=== PATIENT | male | born 1965 | race Caucasian/White ===

== ENCOUNTER 2019-04-28 09:23 | Outpatient (RCR) | payer BC, SELFPAY | END 2019-07-27 23:59 | disposition home or self-care (01) | LOC: ANHDMC 09:23 | PROVIDERS: PCP Family Medicine; Visit Provider Family Medicine | DX: E11.40 Type 2 diabetes mellitus with diabetic neuropathy, unspecified (principal); Z71.89 Other specified counseling | CPT/HCPCS: G0108 ==

== ENCOUNTER 2023-07-02 20:16 | Emergency (ER) | payer BC, SELFPAY ==
--- NOTE | ~2023-07-02 | CT_ITS ---
EXAMINATION: 1. CT facial & cervical spine wo DATE: 07/02/2023 21:01 INDICATION: Fall with head injury TECHNIQUE: 1. Computed tomography (CT) of the maxillofacial region and of the cervical spine were performed with out intravenous contrast. Sagittal and coronal reconstructions of both regions were obtained. Automat ed exposure control and iterative reconstruction technique were employed. The dose-length product was 521.87 mGy-cm. COMPARISON: None. FINDINGS: Maxillofacial CT: No maxillofacial fractures. Specifically the nasal bones, mandible, zygomatic arches and kaplan of the orbits and paranasal sinuses are all intact. Mucosal thickening in the bilateral maxillary sinuses. Orbits are normal. Dental Salma with periapical lucency at the left mandibular first molar. Atheroscl erotic calcific lesions at the bilateral carotid bulbs. Cervical spine CT: Alignment is normal. Vertebral body heights are normal. No acute fractures. Moderate disc height loss at C6-C7, C7-T1 and T1-T2 and mild disc height loss at C4-C5 and C5-C6. Posterior endplate osteophyt es contribute to mild central canal stenosis at C3-C4, C5-C6 and C6-C7. There is moderate bilateral m ultilevel cervical facet osteoarthritis and mild to moderate lower cervical predominant uncovertebral osteoarthritis. This contributes to bilateral multilevel mild to moderate neural foraminal stenosis most prominent on the right at C3-C4 and bilaterally at C6-C7. Visualized apices of the lungs are katey ar. IMPRESSION: 1. No maxillofacial fractures. 2. Moderate lower cervical predominant spondylosis. No acute osseous abnormality. Reviewed, dictated and finalized at location A. IMPRESSION: 1. No maxillofacial fractures. 2. Moderate lower cervical predominant spondylosis. No acute osseous abnormalit y.
--- NOTE | ~2023-07-02 | XR_ITS ---
EXAMINATION: XR chest 2V DATE: 07/02/2023 21:05 INDICATION: Syncope TECHNIQUE: frontal and lateral views of the chest were obtained. COMPARISON: None FINDINGS: The lungs are clear with no focal airspace opacities, pulmonary edema, pleural effusion or pneumothor ax. Heart size is normal. Mild thoracic spondylosis with mild anterior wedging of a few lower thoraci c vertebral bodies. IMPRESSION: 1. No acute cardiopulmonary disease. Reviewed, dictated and finalized at location A.
--- NOTE | ~2023-07-02 | CT_ITS ---
EXAMINATION: CT brain wo con DATE: 07/02/2023 21:01 INDICATION: Fall with head injury TECHNIQUE: Computed tomography (CT) of the head was performed without intravenous contrast. Sagittal and coronal reconstructions were performed. Automated exposure control and iterative reconstruction t echnique were employed. The dose-length product was 605.33 mGy-cm. COMPARISON: None FINDINGS: No fracture. No acute intracranial hemorrhage, acute infarction or abnormal extra axial fluid collect ion. Ventricles are normal and symmetric. No mass/mass effect. The orbits, paranasal sinuses and mas toid air cells are normal. IMPRESSION: 1. No fracture or acute intracranial process. Reviewed, dictated and finalized at location A.
--- NOTE | 2023-07-02 20:19 | ECG_ITS ---
Measurements Intervals [place] Rate: 72 P: 90 SD: 181 QRS: 40 QRSD: 93 T: 72 QT: 366 QTc: 401 Interpretive Statements SINUS RHYTHM WITHIN NORMAL LIMITS NO PREVIOUS ECG AVAILABLE FOR COMPARISON Electronically Signed On 07-03-2023 7:42:40 CDT by Rashad Marcos M.D.
[2023-07-02 20:28] VITALS: BP 159/79; PULSE 79; RESP 20; TEMP 36.4; O2SAT 99
[2023-07-02 20:29] LABS: Glucose Point of Care 116 mg/dl (65-105)
--- NOTE | 2023-07-02 20:41 | ED.SYNCOPE ---
HPI - Syncope General Chief Complaint: Syncope Stated Complaint: syncope, fall Time Seen by Provider: 07/02/23 20:41 Focused HPI: This is a 58 year old male that presents to the ER for a syncopal episode today. Reports he started to feel lightheaded. He thought maybe his blood sugar was low. He went to eat something and then lay down. He passed out. He hit his head. He has never passed out before. Reports he also was having some right leg pain yesterday and has started to develop a rash in the lower leg. Denies fevers, chest pain, shortness of breath or palpitations. GENERAL: Well-appearing, well-nourished, and in no acute distress. HEAD: Normocephalic. Lip laceration present. Abrasion over the nose CHEST: Clear to auscultation. ?No respiratory distress. HEART: Regular rate and rhythm.? NEURO: ?Alert and oriented x3. SKIN: Redness to the right lower leg Patient screened in triage and initial orders placed.? ?Additional care and disposition to be based upon?diagnostic testing and treatment. Related Data Allergies Allergy/AdvReac Type Severity Reaction Status Date / Time No Known Allergies Allergy Mild Verified 07/02/23 20:32 Review of Systems Review of Systems: CONSTITUTIONAL: Denies fever EYES: Denies visual changes CARDIOVASCULAR: Denies chest pain, palpitations, or edema. RESPIRATORY: Denies dyspnea. GASTROINTESTINAL: Denies vomiting SKIN: Reports rash MUSCULOSKELETAL: Reports myalgia. NEUROLOGIC: Denies numbness, or weakness. All systems reviewed & are unremarkable except as noted in HPI and below PMFSH Past Medical History Medical History (Updated 07/03/23 @ 00:02 by Vivi Butler PA-C) Benign essential HTN Low back strain Mixed anxiety depressive disorder Mixed hyperlipidemia Morbid obesity due to excess calories Neuropathy Type 2 diabetes mellitus with diabetic neuropathy, unspecified 2018 fbs 252 Surgical History Surgical History Hx of appendectomy (~1978) Family History Family History Father Diabetes mellitus Mother Family history of [place]'s chorea Social History Social History (Updated 06/16/23 @ 13:06 by Silvia J. Kupinski, MA) Smoking packs per day: 0 Smoking cigarettes per day: 0.0 Smoking status: Never smoker Smokeless tobacco user: chewing tobacco Alcohol intake: current Drinks per week: 5 Substance use: current Substance use type: marijuana Last use: couple days ago Do You Feel Safe in your Home?: Yes Lack of Transportation: No Lack of Food: Never True Current Housing: I Have Housing Concerned About Future Housing: No Difficulty Paying Gas/Electric Bills: No Difficulty Paying for Meds: No Currently Unemployed: No Education: Bachelor's Degree Difficulty w/ Childcare or Family Care: No Living arrangements: with family Exam Narrative: GENERAL: Well-appearing, well-nourished, and in no acute distress. HEAD: Normocephalic. Laceration to the lower lip. Abrasion over the nasal bridge EYES: PERRLA and EOMI. ENT: Nares clear, no rhinorrhea or epistaxis. Mucous membranes moist. Oropharynx without tonsillar hypertrophy exudate or other lesions. Bilateral TMs pearly anand non-bulging NECK: Supple. No adenopathy or masses. CHEST: Clear to auscultation. No respiratory distress. No wheezes rales or rhonchi HEART: Regular rate and rhythm. No murmur heard. Normal peripheral pulses. EXTREMITIES: Normal range of motion. No edema or obvious deformity. Patchy redness to the right lower extremity SKIN: Warm, dry, no rash. NEURO: No focal deficits. Alert and oriented x3. CN II-XII grossly intact PSYCH: Normal mood and affect Course Course Emergency Course: Patient and family updated on workup and recommendation for admission fur further observation and evaluation. He declines to be admitted at this time Vital Signs Vital
[2023-07-02 20:52] LABS: Basophils Percent Auto 0.4 % (0.2-1.2); Eosinophils Absolute Auto 0.1 K/mm3 (0-0.3); Eosinophils Percent Auto 0.7 % (0-4.4); Hematocrit 42.3 % (42.0-52.0); Hemoglobin 13.2 g/dL (14.0-18.0); Immature Granulocyte Absolute 0.08 K/mm3 (0.00-0.031); Immature Granulocyte Percent A 0.8 % (0-0.5); Lymphocytes Absolute Auto 2.08 K/mm3 (0.9-3.2); Lymphocytes Percent Auto 20.5 % (18.3-44.2); Mean Corpuscular HGB Conc 31.2 g/dl (32-36); Mean Corpuscular Volume 99.3 fl (80-100); Mean Platelet Volume 10.3 fl (7.4-10.4); Monocytes Absolute Auto 1.1 K/mm3 (0.1-0.6); Monocytes Percent Auto 10.5 % (2.6-8.5); Neutrophils Absolute Auto 6.8 K/mm3 (1.3-6.7); Neutrophils Percent Auto 67.1 % (45.5-73.1); Platelet Count Result 211 k/mm3 (150-375); Red Blood Count 4.26 M/mm3 (4.6-6.20); White Blood Count 10.1 K/mm3 (4.5-10.0)
[2023-07-02 21:16] LABS: Troponin I < 0.012 ng/mL (0.000-0.034)
[2023-07-02 21:35] LABS: Erythrocyte Sedimentation Rate 22 mm/hr (0-20)
[2023-07-02] MEDS: SODIUM CHLORIDE 0.9% IV 1,000 ML 999 ML IV CONT (21:42)
[2023-07-02] MEDS: LIDOCAINE HCL 1% LOCAL INJ 10 ML VIAL INFILTRATE (22:02)
[2023-07-02 22:11] VITALS: BP 134/87; PULSE 82
[2023-07-02 22:12] VITALS: BP 147/87; PULSE 76
[2023-07-02 22:13] VITALS: BP 127/87; PULSE 93
[2023-07-02 22:18] LABS: Alanine Aminotransferase 23 U/L (6-50); Albumin Level 4.5 g/dL (3.5-5.1); Alkaline Phosphatase 52 U/L (38-126); Anion Gap 9 mmol/L (4-12); Aspartate Amino Transferase 27 U/L (17-59); Bilirubin,Total 0.6 mg/dL (0.2-1.3); Blood Urea Nitrogen 22 mg/dL (9-20); CRP 16.8 mg/dL (<1.0); Calcium 9.7 mg/dL (8.4-10.2); Carbon Dioxide 25 mmol/L (22-30); Chloride 98 mmol/L (98-107); Estimated CRCL calculation 104 ml/min; Estimated Glomerular Filt Rate > 60; Glucose 151 mg/dL (65-110); Potassium 3.3 mmol/L (3.4-5.0); Sodium 132 mmol/L (137-145)
[2023-07-02 22:33] LABS: Magnesium 2.1 mg/dL (1.6-2.3)
[2023-07-02] MEDS: POTASSIUM CHLORIDE 20 MEQ ER TABLET 40 MEQ PO (22:37)
[2023-07-02] MEDS: ACETAMINOPHEN 500 MG TABLET 1000 MG PO (22:50)
[2023-07-03 00:22] VITALS: PULSE 68; RESP 18; O2SAT 98
== END 2023-07-03 00:23 | disposition home or self-care (01) ==
PROVIDERS: Emergency Provider Physician Assistant; PCP Family Medicine
DX: R55 Syncope and collapse (principal); S01.511A Laceration without foreign body of lip, initial encounter; L03.115 Cellulitis of right lower limb; E87.6 Hypokalemia; D64.9 Anemia, unspecified; I10 Essential (primary) hypertension; E11.40 Type 2 diabetes mellitus with diabetic neuropathy, unspecified; E78.2 Mixed hyperlipidemia; E66.01 Morbid (severe) obesity due to excess calories; Z68.30 Body mass index [BMI] 30.0-30.9, adult; F17.220 Nicotine dependence, chewing tobacco, uncomplicated; Z79.84 Long term (current) use of oral hypoglycemic drugs; M47.812 Spondylosis without myelopathy or radiculopathy, cervical region; W18.39XA Other fall on same level, initial encounter
CPT/HCPCS: 12011; 36415; 70450; 70486; 71046; 72125; 80053; 82948; 83735; 84484; 85025; 85652; 86140; 93005; 96360; 99284; A9270; J7030